=== PATIENT | female | born 1970 | race African-American/Black ===

== ENCOUNTER 2022-11-13 08:11 | Emergency (ER) | payer SELFPAY ==
[2022-11-13] MEDS ORDERED: HYDROcodone/Acetaminophen 5/325 mg Tablet ONE (08:39)
== END 2022-11-13 09:57 | disposition home or self-care (01) ==
LOC: CSHERS 08:11
DX: S20.211A Contusion of right front wall of thorax, initial encounter (principal); W19.XXXA Unspecified fall, initial encounter

== ENCOUNTER 2023-05-13 12:20 | Emergency (ER) | payer SELFPAY ==
[2023-05-13] MEDS ORDERED: Acetaminophen 500 MG TAB ONE (13:51)
[2023-05-13 14:01] LABS: SARS-CoV-2 NAA Rapid Test DETECTED (NotDetected)
== END 2023-05-13 14:43 | disposition home or self-care (01) ==
LOC: CSHERS 12:20
DX: U07.1 COVID-19 (principal)
CPT/HCPCS: 99284

== ENCOUNTER 2024-09-28 15:36 | Emergency (ER) | payer SELFPAY ==
[~2024-09-28 15:36] MED LIST: Iopamidol 370 76% 100 ML VIAL ONE
[2024-09-28 16:50] LABS: #Basophils 0.04 10x3/uL (0.0-0.2); #Eosinophils 0.06 10x3/uL (0.0-0.5); #Monocytes 0.49 10x3/uL (0.0-1.1); #Neutrophils 4.74 10x3/uL (1.5-8.4); %Basophils 0.5 % (0.0-2.0); %Eosinophils 0.8 % (0.0-6.0); %Monocytes 6.1 % (0.0-10.0); %Neutrophils 59.3 % (40.0-75.0); Hematocrit 42.9 % (34.9-44.5); Hemoglobin 14.1 g/dL (12.0-15.5); Mean Corpuscular HGB CONC 32.9 g/dL (32.0-36.0); Mean Corpuscular Hemoglobin 29.6 pg (27.0-33.0); Mean Corpuscular Volume 90.1 fL (81.6-98.3); Platelet Count 254 10x3/uL (150-450); RBC Distribution Width 12.7 % (11.5-14.5); Red Blood Cell (RBC) Count 4.76 10x6/uL (3.90-5.03); White Blood Cell (WBC) Count 7.98 10x3/uL (3.5-10.5)
[2024-09-28 17:08] LABS: ALT (SGPT) 21 U/L (8-55); AST (SGOT) 19 U/L (5-34); Albumin 3.6 g/dL (3.5-5.0); Alkaline Phosphatase 56 U/L (40-110); Anion Gap 14 mmol/L (10-20); BUN (Urea Nitrogen) 13 mg/dL (9.8-20.1); Bilirubin, Total 0.2 mg/dL (0.2-1.2); Calc. Creatinine Clearance 0 mL/min (70-130); Calcium 9.5 mg/dL (7.8-10.44); Carbon Dioxide 23 mmol/L (22-29); Chloride 109 mmol/L (98-107); Estimated GFR 74; Globulin 3.7 g/dL (2.4-3.5); Glucose 90 mg/dL (70-105); Lipase 20 U/L (8-78); Potassium 4.1 mmol/L (3.5-5.1); Protein, Total 7.3 g/dL (6.0-8.3); Sodium 142 mmol/L (136-145)
[2024-09-28 17:14] LABS: Troponin I Less than 0.010 ng/mL (< 0.028)
[2024-09-28 17:57] LABS: Bilirubin Neg (Negative); Blood, Urine Negative (Negative); Glucose, Urine (Dipstick) Normal (Negative); Ketone, Urine Negative (Negative); Leukocyte 100 (Negative); Nitrite Negative (Negative); Protein, Urine (Dipstick) Negative (Neg-Trace); Urobilinogen Normal mg/dL (Less than 2); pH, Urine 6.5 (5.0-9.0)
[2024-09-28 19:17] LABS: Clarity Clear (Clear)
[2024-09-28 19:23] LABS: Bacteria/HPF None Seen HPF (None Seen); CAUTI Indications for Culture Pelvic or flank pain; RBC/HPF 0-3 HPF (0-3); Squamous Epithelial 0-3 HPF (0-3); Urine Culture Reflex No No; WBC/HPF 0-3 HPF (0-3)
== END 2024-09-28 18:39 | disposition home or self-care (01) ==
LOC: CSHERS 15:36
DX: H53.9 Unspecified visual disturbance (principal); R05.9 Cough, unspecified
CPT/HCPCS: 70496; 70498; 71045; 80053; 81001; 83690; 83735; 83880; 84484; 85025; 93005; Q9967

== ENCOUNTER 2024-10-07 01:24 | Emergency (ER) | payer SELFPAY | END 2024-10-07 03:46 | disposition home or self-care (01) | LOC: CSHERS 01:24 | DX: J20.9 Acute bronchitis, unspecified (principal) | CPT/HCPCS: 71045; 87428; 96372 ==